=== PATIENT | female | born 1980 | race Caucasian/White ===

== ENCOUNTER 2020-04-23 21:58 | Emergency (ER) | payer OTHER ==
[~2020-04-23] VITALS: Ht 157.5 cm; Wt 295.0 kg
[~2020-04-23 21:58] MED LIST: LEVO50 PO
[2020-04-24 01:00] VITALS: BP 121/83
== END 2020-04-24 01:10 | disposition home or self-care (01) ==
LOC: EMS 21:58
DX: S93.402A Sprain of unspecified ligament of left ankle, initial encounter (principal); F41.9 Anxiety disorder, unspecified; F32.9 Major depressive disorder, single episode, unspecified; Z88.0 Allergy status to penicillin; W01.0XXA Fall on same level from slipping, tripping and stumbling without subsequent striking against object, initial encounter; Y93.89 Activity, other specified; Y92.89 Other specified places as the place of occurrence of the external cause; Y99.8 Other external cause status
CPT/HCPCS: 29515

== ENCOUNTER 2020-05-07 13:17 | Emergency (ER) | payer OTHER ==
[~2020-05-07] VITALS: Ht 167.6 cm; Wt 104.5 kg
[2020-05-07 17:05] VITALS: BP 132/71
== END 2020-05-07 17:22 | disposition home or self-care (01) ==
LOC: EMS 13:18
DX: M25.572 Pain in left ankle and joints of left foot (principal); F41.9 Anxiety disorder, unspecified; F32.9 Major depressive disorder, single episode, unspecified; Z88.0 Allergy status to penicillin
CPT/HCPCS: 29515

== ENCOUNTER 2020-09-30 17:52 | Emergency (ER) | payer OTHER ==
[~2020-09-30] VITALS: Ht 160 cm; Wt 120.5 kg
[2020-09-30] MEDS ORDERED: DEXAMETHASONE SOD PHOS 4 MG/ML 5 ML VIAL IM ONE (19:30)
[2020-09-30] MEDS ORDERED: DiphenhydrAMINE HCL 25 MG CAPSULE PO ONE (19:30)
[2020-09-30] MEDS ORDERED: FAMOTIDINE 20 MG TABLET PO ONE (19:30)
[2020-09-30 20:05] VITALS: BP 132/72
== END 2020-09-30 20:20 | disposition home or self-care (01) ==
LOC: EMS 17:52
DX: T78.1XXA Other adverse food reactions, not elsewhere classified, initial encounter (principal); F41.9 Anxiety disorder, unspecified; F32.9 Major depressive disorder, single episode, unspecified; Z88.0 Allergy status to penicillin; Z91.02 Food additives allergy status; X58.XXXA Exposure to other specified factors, initial encounter
CPT/HCPCS: 96372; 99283; J1100

== ENCOUNTER 2025-06-29 19:05 | Emergency (ER) | payer OTHER ==
[~2025-06-29] VITALS: Ht 157.5 cm; Wt 100.0 kg
[2025-06-29 19:14] VITALS: TEMP 99.5
[2025-06-29] MEDS: FAMOTIDINE 20 MG TABLET PO ONE (22:52)
[2025-06-29 23:01] VITALS: BP 135/70; PULSE 82; RESP 18; O2SAT 100
== END 2025-06-29 23:10 | disposition home or self-care (01) ==
LOC: EMS 19:05
DX: T78.09XA Anaphylactic reaction due to other food products, initial encounter (principal); Y92.89 Other specified places as the place of occurrence of the external cause; E03.9 Hypothyroidism, unspecified; F41.9 Anxiety disorder, unspecified; L29.9 Pruritus, unspecified; F32.A Depression, unspecified; Z88.0 Allergy status to penicillin; Z91.018 Allergy to other foods; Z79.899 Other long term (current) drug therapy; Z98.890 Other specified postprocedural states
CPT/HCPCS: 99284; J7512